=== PATIENT | male | born 1965 | race Caucasian/White ===

== ENCOUNTER 2020-02-25 08:37 | Outpatient (REF) | payer OTHER, SELFPAY ==
[2020-02-25 10:51] LABS: Alanine Aminotransferase 27 U/L (0-40); Albumin Level 4.6 g/dL (3.5-5.0); Alkaline Phosphatase 61 U/L (39-117); Anion Gap 16 (12-20); Aspartate Amino Transferase 27 U/L (5-37); Bilirubin Total 1.2 mg/dL (0.0-1.0); Blood Urea Nitrogen 10 mg/dL (9-16); Calcium 9.3 mg/dL (8.4-10.2); Carbon Dioxide 26 mmol/L (22-29); Chloride 102 mmol/L (96-108); Cholesterol 274 mg/dL; Estimated Glomerular Filt Rate > 60; Glucose Fasting 66 mg/dL (60-99); HDL Cholesterol 111 mg/dL; LDL Cholesterol Calculated 134 mg/dl; Potassium 4.3 mmol/l (3.3-5.1); Sodium 140 mmol/L (135-145); Total Protein 8.2 g/dL (6.5-8.0); Triglycerides 146 mg/dL
[2020-02-25 10:55] LABS: Thyroid Stimulating Hormone 1.55 uIU/mL (0.32-4.0)
== END 2020-02-25 08:38 | disposition home or self-care (01) ==
LOC: HO.LAB 08:37
PROVIDERS: PCP Physician Assistant; Visit Provider Physician Assistant
DX: E78.2 Mixed hyperlipidemia (principal); I10 Essential (primary) hypertension
CPT/HCPCS: 80053; 80061; 84443

== ENCOUNTER 2020-03-10 16:12 | Outpatient (REF) | payer OTHER, SELFPAY ==
--- NOTE | 2020-03-10 16:17 | XR_ITS ---
EXAMINATION: XR HAND, RIGHT CLINICAL INFORMATION: Mallet finger. COMPARISON: None TECHNIQUE: PA, lateral, and oblique views of the right hand. FINDINGS: There is mild flexion of the third digit at the distal interphalangeal joint. No significant degenerative changes or underlying osseous abnormality is seen. The remainder the digits are unremarkable. The joint spaces are unremarkable. The carpal bones are normally aligned. The distal radius and ulna are intact. The soft tissues are unremarkable. XR/XR hand RT min 3V IMPRESSION: Mild flexion of the third digit of the distal interphalangeal joint without significant underlying abnormality.
== END 2020-03-10 16:13 | disposition home or self-care (01) ==
LOC: HO.XRAY 16:12
PROVIDERS: PCP Physician Assistant; Visit Provider Physician Assistant
DX: M20.011 Mallet finger of right finger(s) (principal)
CPT/HCPCS: 73130

== ENCOUNTER → 2020-03-29 12:11 | Outpatient (BNVA) | payer OTHER, SELFPAY | PROVIDERS: PCP Physician Assistant; Visit Provider Orthopaedic Surgery | DX: Z76.89 Persons encountering health services in other specified circumstances (principal) | CPT/HCPCS: 99202 ==

== ENCOUNTER 2020-04-03 13:14 | Outpatient (REF) | payer OTHER, SELFPAY | END 2020-04-03 13:15 | disposition home or self-care (01) | LOC: HO.LAB 13:14 | PROVIDERS: Visit Provider Internal Medicine | DX: Z20.822 Contact with and (suspected) exposure to COVID-19 (principal) | CPT/HCPCS: 36415; C9803; U0003 ==